=== PATIENT | male | born 1975 | race Caucasian/White ===

== ENCOUNTER 2019-04-22 09:39 | Outpatient (CLI) | payer OTHER ==
[~2019-04-22 09:39] MED LIST: PROVENTIL3 ML/2.5 M IH; ZYNCOF 20-400120 ML PO
== END 2019-04-22 09:42 | disposition home or self-care (01) ==
LOC: SONOGRAMA 09:39
DX: E04.2 Nontoxic multinodular goiter (principal); E03.8 Other specified hypothyroidism

== ENCOUNTER 2019-09-27 10:48 | Outpatient (CLI) | payer OTHER | END 2019-09-27 10:52 | disposition home or self-care (01) | LOC: RAD 10:48 | DX: J44.1 Chronic obstructive pulmonary disease with (acute) exacerbation (principal) ==

== ENCOUNTER 2022-08-05 16:32 | Emergency (ER) | payer OTHER ==
[~2022-08-05] VITALS: Ht 180.3 cm; Wt 98.9 kg
[2022-08-05] MEDS ORDERED: COZAAR25 MG PO (16:46)
[2022-08-05] MEDS ORDERED: LEVOTHYROXINE25 MCG PO (16:46)
== END 2022-08-05 19:18 | disposition home or self-care (01) ==
LOC: ER 16:32
DX: R05.9 Cough, unspecified (principal)

== ENCOUNTER 2023-02-17 09:24 | Outpatient (CLI) | payer OTHER ==
[~2023-02-17 09:24] MED LIST changes: +COZAAR25 MG PO; +LEVOTHYROXINE25 MCG PO
== END 2023-02-17 09:32 | disposition home or self-care (01) ==
LOC: SONOGRAMA 09:24
PROVIDERS: ATTEND Internal Medicine
DX: N31.9 Neuromuscular dysfunction of bladder, unspecified (principal)

== ENCOUNTER 2023-09-07 06:53 | Emergency (ER) | payer OTHER ==
[~2023-09-07] VITALS: Ht 154.9 cm; Wt 102.1 kg
[2023-09-07 08:53] LABS: HEMATOCRIT 45.8 % (39.0-48.0); HEMOGLOBIN 15.7 g/dL (13-16.00); MEAN CELL VOLUME 90.7 fL (80.0-100.00); MEAN CORPUSCULAR HEMOGLOBIN 31.1 pg (27.00-32.0); MEAN CORPUSCULAR HGB CONC 34.3 g/dl (32.0-36.0); PLATELET COUNT 203 K/uL (150-450); RED BLOOD COUNT 5.05 M/uL (4.00-6.00); RED CELL DISTRIBUTION WIDTH 13.2 % (11.5-14.5)
[2023-09-07] MEDS ORDERED: ADVIL DUAL ACT1 EACH PO (10:00)
== END 2023-09-07 10:12 | disposition home or self-care (01) ==
LOC: ER 06:53
PROVIDERS: Emergency Medicine
DX: S00.93XA Contusion of unspecified part of head, initial encounter (principal); S20.20XA Contusion of thorax, unspecified, initial encounter; X58.XXXA Exposure to other specified factors, initial encounter; Y93.11 Activity, swimming; Y92.832 Beach as the place of occurrence of the external cause; Y99.9 Unspecified external cause status

== ENCOUNTER 2023-10-06 15:50 | Outpatient (CLI) | payer OTHER ==
[~2023-10-06 15:50] MED LIST changes: +ADVIL DUAL ACT1 EACH PO
== END 2023-10-06 16:01 | disposition home or self-care (01) ==
LOC: TOM 15:50
PROVIDERS: ATTEND Internal Medicine
DX: S09.90XA Unspecified injury of head, initial encounter (principal)

== ENCOUNTER 2024-02-22 11:47 | Outpatient (CLI) | payer OTHER | END 2024-02-22 12:01 | disposition home or self-care (01) | LOC: RAD 11:47 | PROVIDERS: ATTEND Specialist | DX: M25.552 Pain in left hip (principal) ==